=== PATIENT | male | born 1985 | race Caucasian/White ===

== ENCOUNTER 2022-04-29 12:24 | Emergency (ER) | payer BC ==
[2022-04-29 14:17] LABS: ESTIMATED GFR 100 mL/min (>60)
== END 2022-04-29 15:38 | disposition home or self-care (01) ==
LOC: JP.ED 12:24
DX: U07.1 COVID-19 (principal); E86.0 Dehydration; Z72.0 Tobacco use
CPT/HCPCS: 36415; 80053; 85025; 99284; U0002